=== PATIENT | male | born 1975 | race Caucasian/White ===

== ENCOUNTER 2018-01-08 21:51 | Emergency (ER) | payer OTHER ==
[~2018-01-08] VITALS: Ht 182.9 cm; Wt 78.5 kg
[2018-01-09] MEDS ORDERED: KETO10TA2 PO (04:12)
[2018-01-09] MEDS ORDERED: DUI500 PO (04:12)
== END 2018-01-09 04:44 | disposition home or self-care (01) ==
LOC: ER 21:51
DX: S01.82XA Laceration with foreign body of other part of head, initial encounter (principal); W18.39XA Other fall on same level, initial encounter; Y93.89 Activity, other specified; Y92.098 Other place in other non-institutional residence as the place of occurrence of the external cause; Y99.8 Other external cause status; R42 Dizziness and giddiness; R55 Syncope and collapse

== ENCOUNTER 2020-05-23 10:52 | Outpatient (CLI) | payer OTHER ==
[~2020-05-23 10:52] MED LIST: DUI500 PO; KETO10TA2 PO
== END 2020-05-23 11:25 | disposition home or self-care (01) ==
LOC: RAD 10:52 → MAMO-SONO 11:15 → RAD 11:25
PROVIDERS: ATTEND Physical Medicine & Rehabilitation
DX: M75.101 Unspecified rotator cuff tear or rupture of right shoulder, not specified as traumatic (principal); M71.40 Calcium deposit in bursa, unspecified site; M54.5 Low back pain

== ENCOUNTER 2021-03-22 10:16 | Outpatient (CLI) | payer OTHER | END 2021-03-22 10:30 | disposition home or self-care (01) | LOC: RAD 10:16 | PROVIDERS: ATTEND Physical Medicine & Rehabilitation | DX: M54.2 Cervicalgia (principal); M54.12 Radiculopathy, cervical region ==

== ENCOUNTER 2021-09-03 08:00 | Outpatient (CLI) | payer OTHER | END 2021-09-03 08:30 | disposition home or self-care (01) | LOC: PPH VACUNA 08:00 | PROVIDERS: ATTEND Emergency Medicine Pediatric Emergency Medicine | DX: Z23 Encounter for immunization (principal) ==

== ENCOUNTER 2022-11-29 12:49 | Emergency (ER) | payer OTHER ==
[~2022-11-29] VITALS: Ht 182.9 cm; Wt 72.6 kg
[2022-11-29] MEDS ORDERED: ZOFRAN8 MG PO (18:55)
[2022-11-29] MEDS ORDERED: PEPCID AC20 MG PO (18:55)
[2022-11-29] MEDS ORDERED: METRONIDAZOLE500 MG PO (18:55)
== END 2022-11-29 20:54 | disposition home or self-care (01) ==
LOC: ER 12:49
DX: K52.9 Noninfective gastroenteritis and colitis, unspecified (principal); E86.0 Dehydration

== ENCOUNTER 2024-06-08 11:53 | Outpatient (CLI) | payer OTHER ==
[~2024-06-08 11:53] MED LIST changes: +METRONIDAZOLE500 MG PO; +PEPCID AC20 MG PO; +ZOFRAN8 MG PO
== END 2024-06-08 11:59 | disposition home or self-care (01) ==
LOC: RAD 11:53
PROVIDERS: ATTEND Physical Medicine & Rehabilitation
DX: S62.609A Fracture of unspecified phalanx of unspecified finger, initial encounter for closed fracture (principal)

== ENCOUNTER → 2024-07-01 | Outpatient (CLI) | payer OTHER | END | disposition home or self-care (01) | LOC: MRI 11:00 | PROVIDERS: ATTEND Physical Medicine & Rehabilitation | DX: S62.307A Unspecified fracture of fifth metacarpal bone, left hand, initial encounter for closed fracture (principal) | CPT/HCPCS: 73218 ==